=== PATIENT | female | born 1975 | race African-American/Black ===

== ENCOUNTER 2019-09-17 06:36 | Emergency (ER) | payer BC, MEDICAID, OTHER ==
[2019-09-17] MEDS ORDERED: Sodium Chloride 0.9% 10 ML Syringe FLUSH PRN (07:00)
[2019-09-17] MEDS ORDERED: Aspirin 81 MG Tab.Chew PO ONE (07:02)
--- NOTE | 2019-09-17 07:08 | EDM.PDOC ---
ED HPI GENERAL MEDICAL PROBLEM - General Chief Complaint: Chest Pain Stated Complaint: [facility] Time Seen by Provider: 09/17/19 06:54 Source of Information: Reports: Patient, EMS History Limitations: Reports: No Limitations - History of Present Illness INITIAL COMMENTS - FREE TEXT/NARRATIVE: The patient presents by [facility] for chest pain and possible syncopal episode. The patient says this all started yesterday with chest pain that radiates to her back and generalized muscle pain. She went to work this morning with the same and felt dizzy and nearly passed out. She continues to have the pain here. She denies fever, chills, cough, congestion, runny nose, sore throat, shortness of breath, abdominal pain, nausea or vomiting. She does not have any heart problems. She has no other health problems. She also has a headache. Onset: Gradual Duration: Day(s): (Yesterday) Location: Reports: Chest, Generalized Quality: Reports: Sharp Severity: Moderate Improves with: Reports: None Worsens with: Reports: None Associated Symptoms: Reports: Chest Pain, Headaches. 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, IV/IO Chest Pain Score (Numeric/FACES): 9 - Related Data Allergies Allergy/AdvReac Type Severity Reaction Status Date / Time No Known Allergies Allergy Verified 09/17/19 06:42 Home Meds: Home Meds Docusate Sodium [Colace] 100 mg PO BID cap 09/24/16 [Rx] Ibuprofen [Motrin] 200 - 600 mg PO Q6H PRN #50 tablet 09/24/16 [Rx] Past Medical History - Past Health History Medical/Surgical History: Denies Medical/Surgical History Cardiovascular History: Reports: High Cholesterol Other Respiratory History: Severe Snoring 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, 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: 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, uterine leiomyoma - Past Surgical History Female Surgical History: Reports: Hysterectomy Social & Family History - Family History Family Medical History: Unobtainable - Tobacco Use Smoking Status *Q: Never Smoker - Caffeine Use Caffeine Use: Reports: None ED ROS GENERAL - Review of Systems Review Of Systems: See Below Constitutional: Reports: No Symptoms HEENT: Reports: No Symptoms Respiratory: Reports: No Symptoms Cardiovascular: Reports: Chest Pain Endocrine: Reports: No Symptoms GI/Abdominal: Reports: No Symptoms : Reports: No Symptoms Musculoskeletal: Reports: Muscle Pain Neurological: Reports: Headache ED EXAM, GENERAL - Physical Exam Exam: See Below Exam Limited By: No Limitations General Appearance: Alert, No Apparent Distress Ears: Normal External Exam Nose: Normal Inspection Head: Atraumatic, Normocephalic Neck: Normal Inspection Respiratory/Chest: No Respiratory Distress, Lungs Clear, Normal Breath Sounds Cardiovascular: Regular Rate, Rhythm, No Edema, No Murmur GI/Abdominal: Soft, Non-Tender, No Organomegaly, No Mass Back Exam: Normal Inspection Extremities: Normal Inspection EKG INTERPRETATION EKG Date: 09/17/19 Time: 06:45 Rhythm: NSR Rate (Beats/Min): 71 [place]: Normal P-Wave: Present QRS: Normal ST-T: Normal QT: Normal EKG Interpretation Comments: Supraventricular Bigeminy Course - Vital Signs Last Recorded V/S: Last Vital Signs Temp 97.6 F 09/17/19 06:42 Pulse 58 L 09/17/19 06:42 Resp 13 09/17/19 06:42 BP 126/89 09/17/19 06:42 Pulse Ox 100 09/17/19 06:42 - Orders/Labs/Meds Orders: Active Orders 24 hr Category Date Time Status Cardiac Monitoring [RC] . DIRECTED Care 09/17/19 07:00 Active EKG Documentation Completion [RC] STAT Care 09/17/19 07:01 Active Peripheral IV Care [RC] . DIRECTED Care 09/17/19 07:01 Active Chest 2V [CR] Stat Exams 09/17/19 07:01 Taken Sodium Chloride 0.9% [Saline Flush] Med 09/17/19 07:00 Active 10 ml FLUSH ASDIRECTED PRN Peripheral IV Insertion Adult [OM.PC] Stat Oth 09/17/19 07:00 Ordered Medication Orders Sodium Chloride (Saline Flush) 10 ml FLUSH ASDIRECTED PRN PRN Reason: Keep Vein Open Last Admin: 09/17/19 07:07 Dose: 10 ml Labs: Laboratory Tests 09/17/19 09/17/19 09/17/19 Range/Units 08:52 08:52 08:52 WBC 4.58 (3.98-10.04) K/mm3 RBC 4.67 (3.98-5.22) M/mm3 Hgb 11.6 (11.2-15.7) gm/dl Hct 37.3 (34.1-44.9) % MCV 79.9 (79.4-94.8) fl MCH 24.8 L (25.6-32.2) pg MCHC 31.1 L (32.2-35.5) g/dl RDW Std Deviation 43.0 (36.4-46.3) fL Plt Count 262 (182-369) K/mm3 MPV 10.3 (9.4-12.3) fl Neut % (Auto) 49.6 (34.0-71.1) % Lymph % (Auto) 41.3 (19.3-51.7) % [place] % (Auto) 7.6 (4.7-12.5) % Eos % (Auto) 1.1 (0.7-5.8) Baso % (Auto) 0.2 (0.1-1.2) % Neut # (Auto) 2.27 (1.56-6.13) K/mm3 Lymph # (Auto) 1.89 (1.18-3.74) K/mm3 [place] # (Auto) 0.35 (0.24-0.36) K/mm3 Eos # (Auto) 0.05 (0.04-0.36) K/mm3 Baso # (Auto) 0.01 (0.01-0.08) K/mm3 D-Dimer, Quantitative 0.33 (0.19-0.50) mg/L Sodium 139 (136-145) mEq/L Potassium 3.8 (3.5-5.1) mEq/L Chloride 105 (98-107) mEq/L Carbon Dioxide 26 (21-32) mEq/L Anion Gap 11.8 (5-15) BUN 17 (7-18) mg/dL Creatinine 0.6 (0.55-1.02) mg/dL Est Cr Clr Drug Dosing TNP Estimated GFR (MDRD) > 60 (>60) mL/min BUN/Creatinine Ratio 28.3 H (14-18) Glucose 95 (74-106) mg/dL Calcium 8.1 L (8.5-10.1) mg/dL Total Bilirubin 0.3 (0.2-1.0) mg/dL AST 14 L (15-37) U/L ALT 29 (14-59) U/L Alkaline Phosphatase 49 (46-116) U/L Troponin I < 0.017 (0.00-0.056) ng/mL Total Protein 6.3 L (6.4-8.2) g/dl Albumin 3.1 L (3.4-5.0) g/dl Globulin 3.2 gm/dL Albumin/Globulin Ratio 1.0 (1-2) Meds: Medications Generic Name Dose Route Start Last Admin Trade Name Freq PRN Reason Stop Dose Admin Sodium Chloride 10 ml 09/17/19 07:00 09/17/19 07:07 Saline Flush FLUSH 10 ml ASDIRECTED PRN Administration Keep Vein Open Discontinued Medications Generic Name Dose Route Start Last Admin Trade Name Freq PRN Reason Stop Dose Admin Aspirin 324 mg 09/17/19 07:02 09/17/19 07:06 Aspirin PO 09/17/19 07:03 324 mg ONETIME ONE Administration - Re-Assessments/Exams Free Text/Narrative Re-Assessment/Exam: 09/17/19 07:07 I ordered an IV saline lock, EKG, CXR, aspirin and labs. Her EKG shows a sinus rhythm and supraventricular bigeminy without acute changes. 09/17/19 10:02 Her CXR looks good. Her CBC and CMP look good. Her D-dimer is negative. Her troponin is negative. She feels better. I will discharge her home. Departure - Departure Time of Disposition: 10:05 Disposition: Home, Self-Care 01 Condition: Good Clinical Impression: Atypical chest pain, Near syncope Referrals: PCP,Unknown [Primary Care Provider] - Lacey Bhagat PA-C [Physician Remnants Cutter] - 1 Week Forms: ED Department Discharge, ED Return to Work/School Form Additional Instructions: Drink plenty of fluids. Take tylenol or motrin for pain. Please return if you are worse. Sepsis Event Note - Evaluation Sepsis Screening Result: No Definite Risk - Focused Exam Vital Signs: Vital Signs Temp Pulse Resp BP Pulse Ox 09/17/19 06:42 97.6 F 58 L 13 126/89 100 Date Exam was Performed: 09/17/19 Time Exam was Performed: 10:02 - My Orders Last 24 Hours: My Active Orders 09/17/19 07:00 Cardiac Monitoring [RC] . DIRECTED Sodium Chloride 0.9% [Saline Flush] 10 ml FLUSH ASDIRECTED PRN Peripheral IV Insertion Adult [OM.PC] Stat 09/17/19 07:01 EKG Documentation Completion [RC] STAT Peripheral IV Care [RC] . DIRECTED Chest 2V [CR] Stat - Assessment/Plan Last 24 Hours: My Active Orders 09/17/19 07:00 Cardiac Monitoring [RC] . DIRECTED Sodium Chloride 0.9% [Saline Flush] 10 ml FLUSH ASDIRECTED PRN Peripheral IV Insertion Adult [OM.PC] Stat 09/17/19 07:01 EKG Documentation Completion [RC] STAT Peripheral IV Care [RC] . DIRECTED Chest 2V [CR] Stat
[2019-09-17 11:28] VITALS: BP 120/70; PULSE 68
--- NOTE | 2019-09-18 07:25 | CR ---
Chest: PA and lateral views of the chest were obtained. Comparison: No prior chest imaging. Heart size and mediastinum are normal. Nodules are noted within both lung bases most likely due to nipple densities since they are fairly symmetric. Lungs otherwise are clear. Bony structures are within normal limits for the patient's age. Impression: 1. Nothing acute is seen on two-view chest x-ray. Diagnostic code #1 This report was dictated in [place] Standard Time
== END 2019-09-17 10:50 | disposition home or self-care (01) ==
LOC: JD.ED 06:36
DX: R07.89 Other chest pain (principal); R55 Syncope and collapse
CPT/HCPCS: 36415; 71046; 80053; 84484; 85025; 85379; 87804; 93005; 99285; A9270; 93010; 99284

== ENCOUNTER 2021-05-03 21:53 | Emergency (ER) | payer MEDICAID, OTHER ==
--- NOTE | 2021-05-03 22:18 | EDM.PDOC ---
ED HPI GENERAL MEDICAL PROBLEM - General Chief Complaint: Lower Extremity Injury/Pain Stated Complaint: INJURED LEFT ANKLE Time Seen by Provider: 05/03/21 22:06 Source of Information: Reports: Patient, RN Notes Reviewed History Limitations: Reports: No Limitations - History of Present Illness INITIAL COMMENTS - FREE TEXT/NARRATIVE: Patient is a 45-year-old female who presents to the ER for evaluation of a left ankle injury. Patient was at home, earlier and missed 2 steps, and ended up twisting her left ankle. Notes that she has had pain in this ankle since then, she has been using ice, and 1 dose of Tylenol and has not gotten much for pain relief. She has been able to walk on the ankle however it has been very painful. She is denying any numbness or tingling distal to the injury. There are good pulses palpable on the affected extremity. Very small amount of swelling noted at this time. No sick symptoms. 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 ED EXAM, GENERAL - Physical Exam Exam: See Below Exam Limited By: No Limitations General Appearance: Alert, WD/WN, No Apparent Distress Respiratory/Chest: No Respiratory Distress, Lungs Clear, Normal Breath Sounds, No Accessory Muscle Use, Chest Non-Tender Cardiovascular: Normal Peripheral Pulses, Regular Rate, Rhythm, No Edema Peripheral Pulses: 2+: Dorsalis Pedis (L), Dorsalis Pedis (R) Extremities: Normal Inspection, Normal Capillary Refill, Limited Range of Motion (of dorsiflexion of left ankle) Neurological: Alert, Oriented, Normal Cognition, No Motor/Sensory Deficits Psychiatric: Normal Affect, Normal Mood Skin Exam: Warm, Dry, Intact, Normal Color, No Rash Course - Vital Signs Last Recorded V/S: Last Vital Signs Temp 97.5 F 05/03/21 22:21 Pulse 63 05/03/21 22:21 Resp 20 05/03/21 22:21 BP 103/71 05/03/21 22:21 Pulse Ox 100 05/03/21 22:21 - Orders/Labs/Meds Orders: Active Orders 24 hr Category Date Time Status Ankle Min 3V Lt [CR] Stat Exams 05/03/21 22:06 Ordered JAI Bandage [Elastic Wrap] [OM.PC] Routine Oth 05/03/21 22:40 Ordered DME for Discharge [COMM] Routine Oth 05/03/21 22:40 Ordered - Re-Assessments/Exams Free Text/Narrative Re-Assessment/Exam: 05/03/21 22:46 Patient presents to the ER for evaluation of her left ankle injury. X-rays were taken at time of triage, demonstrate no acute fractures or other focal abnormalities appreciated by myself or Dr. Avila. We will go ahead and Jai wrap the patient's ankle, provide her with some crutches at this time. Departure - Departure Time of Disposition: 22:47 Disposition: Home, Self-Care 01 Condition: Good Clinical Impression: Left ankle sprain Qualifiers: Encounter type: initial encounter Involved ligament of ankle: unspecified ligament Qualified Code(s): S93.402A - Sprain of unspecified ligament of left ankle, initial encounter - Discharge Information *PRESCRIPTION DRUG MONITORING PROGRAM REVIEWED*: No *COPY OF PRESCRIPTION DRUG MONITORING REPORT IN PATIENT SHARRI: No Instructions: Ankle Sprain, [id number] Referrals: Yolanda Jones NP [Primary Care Provider] - Forms: ED Department Discharge, ED Return to Work/School Form Additional Instructions: You have been evaluated in the ED for your left ankle injury. Your x-ray demonstrated no acute fractures or bony abnormalities. Please use ice as tolerated to the affected area. Please try to elevate the affected area to relieve swelling. Have been provided with a pair crutches for ambulation purposes. Please use these as needed for ambulation while you are still having pain with walking. You may take Tylenol 500 mg or ibuprofen 600mg q6 hrs for pain relief. Please do so until you have a tolerable level of pain with activity. Do not exceed 4000mg Tylenol or 3200mg ibuprofen in a 24 hour time period. Please follow-up with your regular provider for re-evaluation, if your injury is not feeling much better in roughly 7 to 10 days time. Please return to ED if your symptoms should change or worsen. Sepsis Event Note (ED) - Focused Exam Vital Signs: Vital Signs Temp Pulse Resp BP Pulse Ox 05/03/21 22:21 97.5 F 63 20 103/71 100 - My Orders Last 24 Hours: My Active Orders 05/03/21 22:06 Ankle Min 3V Lt [CR] Stat 05/03/21 22:40 JAI Bandage [Elastic Wrap] [OM.PC] Routine DME for Discharge [COMM] Routine - Assessment/Plan Last 24 Hours: My Active Orders 05/03/21 22:06 Ankle Min 3V Lt [CR] Stat 05/03/21 22:40 JAI Bandage [Elastic Wrap] [OM.PC] Routine DME for Discharge [COMM] Routine
[2021-05-03 22:25] VITALS: BP 103/71; PULSE 63
--- NOTE | 2021-05-04 09:25 | CR ---
Left ankle: 4 views of the left ankle were obtained. Comparison: No prior ankle study is available. Ankle mortise is symmetric. Small spur is noted at the attachment of the Achilles tendon to the calcaneus. No acute fracture, dislocation or other bony abnormality is appreciated. Impression: 1. Small calcaneal spur. 2. Nothing acute is appreciated on left ankle study. Diagnostic code #2
== END 2021-05-03 23:20 | disposition home or self-care (01) ==
LOC: JD.ED 21:53
DX: S93.402A Sprain of unspecified ligament of left ankle, initial encounter (principal); X50.1XXA Overexertion from prolonged static or awkward postures, initial encounter; Y92.009 Unspecified place in unspecified non-institutional (private) residence as the place of occurrence of the external cause
CPT/HCPCS: 73610-26-LT; 73610-LT; 99282; 99283-25